=== PATIENT | female | born 1970 | race Caucasian/White ===

== ENCOUNTER → 2016-02-25 | Outpatient (CLI) | payer BC ==
--- NOTE | 2016-02-25 16:08 | MR ---
EXAMINATION TYPE: MR LE non joint RT wo/w con DATE OF EXAM: 02/25/2016 9:26 AM COMPARISON: Right lower extremity targeted ultrasound December 14, 2015 HISTORY: Palpable lump on rt distal thigh, painful, marker placed CONTRAST: Standard multiplanar, multisequence MRI departmental protocol utilizing 16 mL intravenous MultiHance gadolinium contrast. FINDINGS: A vitamin E marker is placed at level of palpable abnormality anteriorly in the right femur midshaft level seen on axial image 25. No suspicious skin thickening is identified at this level. Ordonez bcutaneous fat appears within normal limits. There is no worrisome solid or cystic mass or fluid marcelina ection seen. Visualized right femur is within normal limits. No suspicious cortical destruction or osseous edema i s present. Muscles surrounding right femur are symmetric and felt within normal limits. Within the anterior musc le at this level there is intramuscular T1 signal isointense to fat with T2 signal that is more hyper intense to fat that does not show fat saturation. There is suggestion there is feeding vessel into th is structure on coronal image 7. Lesion is slightly lobulated but fairly well-defined measuring 1 cm transversely on axial image 31 x 1.6 cm in craniocaudal dimension by 0.7 cm anterior posterior dimens ion. 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
== END | disposition home or self-care (01) ==
LOC: RADMRIMAIN 08:08
PROVIDERS: ATTEND Family Medicine
DX: Q27.9 Congenital malformation of peripheral vascular system, unspecified (principal)
CPT/HCPCS: 73720; A9577

== ENCOUNTER → 2018-03-11 | Outpatient (CLI) | payer BC ==
--- NOTE | 2018-03-11 11:18 | CT ---
EXAMINATION TYPE: CT brain wo con DATE OF EXAM: 03/11/2018 COMPARISON: 02/14/2012 HISTORY: Persistant headache CT DLP: 1121 mGycm. Automated Exposure Control for Dose Reduction was Utilized. TECHNIQUE: CT scan of the head is performed without contrast. FINDINGS: There is no acute intracranial hemorrhage, mass effect, or midline shift identified. The ventricles and sulci are within normal limits in size. The globes are intact and the visualized sin uses are clear. Changes of chronic sinusitis are noted. Artifact does limit the exam. IMPRESSION: 1. No acute intracranial hemorrhage, mass effect, or midline shift is seen. If there is concern for a cute ischemia correlate with MRI as clinically warranted. 2. Changes of right chronic sinusitis.
== END | disposition home or self-care (01) ==
LOC: RADCTMAIN 10:45
PROVIDERS: ATTEND Family Medicine
DX: G44.52 New daily persistent headache (NDPH) (principal)
CPT/HCPCS: 70450

== ENCOUNTER 2018-09-16 05:00 | Emergency (ER) | payer BC ==
[2018-09-16 05:35] LABS: Appearance,Urine Clear (Clear); Bilirubin,Urine Negative (Negative); Blood,Urine Negative (Negative); Color,Urine Colorless; Glucose,Urine (UA) Negative (Negative); Ketones,Urine Negative (Negative); Leukocyte Esterase,Urine Negative (Negative); Nitrite,Urine Negative (Negative); Protein,Urine Negative (Negative); Specific Gravity,Urine 1.001 (1.001-1.035); Urobilinogen,Urine <2.0 mg/dL (<2.0)
[2018-09-16 05:36] LABS: Basophils % (A) 1 %; Eosinophils # (A) 0.2 k/uL (0-0.7); Eosinophils % (A) 3 %; HCT 43.9 % (34.0-46.0); Lymphocytes # (A) 1.5 k/uL (1.0-4.8); Lymphocytes % (A) 27 %; MCH 28.5 pg (25.0-35.0); MCHC 31.9 g/dL (31.0-37.0); MCV 89.2 fL (80.0-100.0); Mean Platelet Volume 7.4; Monocytes # (A) 0.2 k/uL (0-1.0); Monocytes % (A) 4 %; Neutrophils # (A) 3.7 k/uL (1.3-7.7); Neutrophils % (A) 65 %; Platelet Count 220 k/uL (150-450); RBC 4.92 m/uL (3.80-5.40); RDW 13.9 % (11.5-15.5); WBC 5.7 k/uL (3.8-10.6)
[2018-09-16 05:46] LABS: ALT 27 U/L (9-52); AST 32 U/L (14-36); African American GFR (CKD) >90 (>60 ml/min/1.73 sqM); Alkaline Phosphatase 69 U/L (38-126); Amylase 71 U/L (30-110); Anion Gap 7 mmol/L; Blood Urea Nitrogen 6 mg/dL (7-17); Calcium 9.2 mg/dL (8.4-10.2); Carbon Dioxide 24 mmol/L (22-30); Chloride 109 mmol/L (98-107); Glucose 96 mg/dL (74-99); Potassium 3.5 mmol/L (3.5-5.1); Sodium 140 mmol/L (137-145); Total Bilirubin 0.5 mg/dL (0.2-1.3); Total Protein 6.6 g/dL (6.3-8.2)
[2018-09-16] MEDS ORDERED: MORPHINE SULFATE 4 MG/ML SYRINGE IVP STA (06:25)
--- NOTE | 2018-09-16 06:26 | XR ---
INDICATION: Abdominal pain COMPARISON: None FINDINGS: 2 upright AP views of the abdomen are provided. There are surgical clips projecting over the region of the gastroesophageal junction. The bowel gas pattern is nonspecific and nonobstructive. There is no evidence of free air. There are pelvic phleboliths. Regional skeleton appears intact. The lung bases are clear. IMPRESSION: Nonspecific, nonobstructive bowel gas pattern.
[2018-09-16] MEDS ORDERED: ONDANSETRON 4 MG/2 ML VIAL IVP STA (06:29)
--- NOTE | 2018-09-16 07:10 | ED ---
Abdominal Pain HPI - General Source: patient, RN notes reviewed, old records reviewed Mode of arrival: ambulatory Limitations: no limitations - History of Present Illness MD Complaint: abdominal pain -: days(s) (3) Location: epigastric, suprapubic Radiation: L flank, R flank, back Migration to: bilateral flank Severity: moderate Severity scale (1-10): 5 Quality: aching Consistency: intermittent Improves With: nothing Worsens With: nothing Associated Symptoms: nausea <Jam Norman - Last Filed: 09/16/18 07:03> <Kevin Starks - Last Filed: 09/16/18 08:14> - General Chief Complaint: Abdominal Pain Stated Complaint: Abd Pain Time Seen by Provider: 09/16/18 06:02 - History of Present Illness Initial Comments: This is a 47-year-old female the ER for evaluation shortness a for evaluation of bowel pain but mainly back pain pain in her back. Patient has history of C- section hysterectomy gastric bypass. Patient is recent travel history or sick contacts no fever cough or congestion. No modifying factors for pain at home. Pain is her back radiating to anterior abdomen. No nausea no vomiting again no fevers no diarrhea no blood in stool patient states her bowel pain 3 days with nausea (Jam Norman) - Related Data Home Medications Medication Instructions Recorded Confirmed Cetirizine HCl [Zyrtec Chewable] 10 mg PO HS 07/01/13 09/16/18 Citalopram Hydrobromide [CeleXA] 40 mg PO HS 09/16/18 09/16/18 Allergies Allergy/AdvReac Type Severity Reaction Status Date / Time scopolamine AdvReac DILATED Verified 09/16/18 07:54 PUPILS sulfamethoxazole AdvReac Nausea & Verified 09/16/18 07:54 [From Bactrim] Vomiting trimethoprim [From Bactrim] AdvReac Nausea & Verified 09/16/18 07:54 Vomiting Review of Systems ROS Other: All systems not noted in ROS Statement are negative. <Jam Norman - Last Filed: 09/16/18 07:03> ROS Other: All systems not noted in ROS Statement are negative. <Kevin Starks - Last Filed: 09/16/18 08:14> ROS Statement: Those systems with pertinent positive or pertinent negative responses have been documented in the HPI. Past Medical History Past Medical History: GERD/Reflux Additional Past Medical History / Comment(s): Tooth abcess History of Any Multi-Drug Resistant Organisms: None Reported Past Surgical History: Section, Hysterectomy Additional Past Surgical History / Comment(s): Oral surgery, gastric bypass Past Anesthesia/Blood Transfusion Reactions: No Reported Reaction Past Psychological History: Depression Smoking Status: Never smoker Past Alcohol Use History: None Reported Past Drug Use History: None Reported - Past Family History Father Family Medical History: Diabetes Mellitus Additional Family Medical History / Comment(s): Father had a history of depression and as a result of suicide Mother Family Medical History: Cancer <Jam Norman - Last Filed: 09/16/18 07:03> General Exam Limitations: no limitations General appearance: alert, in no apparent distress Head exam: Present: atraumatic, normocephalic, normal inspection Eye exam: Present: normal appearance, PERRL, EOMI. Absent: scleral icterus, conjunctival injection, periorbital swelling ENT exam: Present: normal exam, mucous membranes moist Neck exam: Present: normal inspection. Absent: tenderness, meningismus, lymphadenopathy Respiratory exam: Present: normal lung sounds bilaterally. Absent: respiratory distress, wheezes, rales, rhonchi, stridor Cardiovascular Exam: Present: regular rate, normal rhythm, normal heart sounds. Absent: systolic murmur, diastolic murmur, rubs, gallop, clicks GI/Abdominal exam: Present: soft, normal bowel sounds. Absent: distended, tenderness, guarding, rebound, rigid Extremities exam: Present: normal inspection, full ROM, normal capillary refill. Absent: tenderness, pedal edema, joint swelling, calf tenderness Back exam: Present: normal inspection Neurological exam: Present: alert, oriented X3, CN II-XII intact Psychiatric exam: Present: normal affect, normal mood Skin exam: Present: warm, dry, intact, normal color. Absent: rash <Jam Norman - Last Filed: 09/16/18 07:03> Course <Jam Norman - Last Filed: 09/16/18 07:03> Vital Signs 09/16/18 09/16/18 09/16/18 05:07 06:22 07:15 Temperature 98.7 F 98.6 F Pulse Rate 72 75 72 Respiratory 18 18 16 Rate Blood Pressure 126/79 124/85 119/75 O2 Sat by Pulse 99 96 98 Oximetry - Reevaluation(s) Reevaluation #1: 09/16/18 07:06 Medical record reviewed (Jam Norman) Reevaluation #2: 09/16/18 07:06 Patient requiring pain control, pain is improved (Jam Norman) Medical Decision Making - Lab Data Result diagrams: 09/16/18 05:16 09/16/18 05:16 - Radiology Data Radiology results: report reviewed (CT of abdomen and pelvis), image reviewed <Jam Norman - Last Filed: 09/16/18 07:03> - Lab Data Result diagrams: 09/16/18 05:16 09/16/18 05:16 - Radiology Data Radiology results: report reviewed (Computed tomography scan of the abdomen pelvis shows partial gastrectomy change. No bowel obstruction. Probable atelectasis. Moderate hepatic steatosis), image reviewed (KUB shows nonobstructive pattern) <Kevin Starks - Last Filed: 09/16/18 08:14> - Medical Decision Making 47 female the ER for evaluation. Patient has history of abdominal pain. Labwork is normal. Patient is here is controlled (Jam Norman) Case endorsed to me for probable discharge after computed tomography scan. Patient reevaluated and resting comfortably in bed. Abdomen is soft and nontender. Patient and family updated on results and need for follow-up. Patient does not want any further medication at this point. (Kevin Starks) - Lab Data Lab Results 09/16/18 09/16/18 09/16/18 Range/Units 05:16 05:16 05:16 WBC 5.7 (3.8-10.6) k/uL RBC 4.92 (3.80-5.40) m/uL Hgb 14.0 (11.4-16.0) gm/dL Hct 43.9 (34.0-46.0) % MCV 89.2 (80.0-100.0) fL MCH 28.5 (25.0-35.0) pg MCHC 31.9 (31.0-37.0) g/dL RDW 13.9 (11.5-15.5) % Plt Count 220 (150-450) k/uL Neutrophils % 65 % Lymphocytes % 27 % Monocytes % 4 % Eosinophils % 3 % Basophils % 1 % Neutrophils # 3.7 (1.3-7.7) k/uL Lymphocytes # 1.5 (1.0-4.8) k/uL Monocytes # 0.2 (0-1.0) k/uL Eosinophils # 0.2 (0-0.7) k/uL Basophils # 0.0 (0-0.2) k/uL Sodium 140 (137-145) mmol/L Potassium 3.5 (3.5-5.1) mmol/L Chloride 109 H (98-107) mmol/L Carbon Dioxide 24 (22-30) mmol/L Anion Gap 7 mmol/L BUN 6 L (7-17) mg/dL Creatinine 0.61 (0.52-1.04) mg/dL Est GFR (CKD-EPI)AfAm >90 (>60 ml/min/1.73 sqM) Est GFR (CKD-EPI)NonAf >90 (>60 ml/min/1.73 sqM) Glucose 96 (74-99) mg/dL Calcium 9.2 (8.4-10.2) mg/dL Total Bilirubin 0.5 (0.2-1.3) mg/dL AST 32 (14-36) U/L ALT 27 (9-52) U/L Alkaline Phosphatase 69 (38-126) U/L Total Protein 6.6 (6.3-8.2) g/dL Albumin 4.0 (3.5-5.0) g/dL Amylase 71 (30-110) U/L Lipase 86 (23-300) U/L Urine Color Colorless Urine Appearance Clear (Clear) Urine pH 5.0 (5.0-8.0) Ur Specific [place] 1.001 (1.001-1.035) Urine Protein Negative (Negative) Urine Glucose (UA) Negative (Negative) Urine Ketones Negative (Negative) Urine Blood Negative (Negative) Urine Nitrite Negative (Negative) Urine Bilirubin Negative (Negative) Urine Urobilinogen <2.0 (<2.0) mg/dL Ur Leukocyte Esterase Negative (Negative) Disposition Is patient prescribed a controlled substance at d/c from ED?: No <Jam Norman - Last Filed: 09/16/18 07:03> Time of Disposition: 08:13 <Kevin Starks - Last Filed: 09/16/18 08:14> Clinical Impression: Abdominal pain Disposition: HOME SELF-CARE Condition: Good Instructions (If sedation given, give patient instructions): Abdominal Pain (ED) Additional Instructions: Please follow-up to primary care physician and surgeon in the next couple days for recheck. Return for increased pain, vomiting, unable to have bowel movement, fevers, worsening symptoms or other concerns. Referrals: Jam Weber MD [Primary Care Provider] - 1-2 days
[2018-09-16 07:18] VITALS: BP 119/75; RESP 16
--- NOTE | 2018-09-16 07:38 | CT ---
EXAMINATION TYPE: CT abdomen pelvis w con DATE OF EXAM: 09/16/2018 HISTORY: Abdominal pain CT DLP: 1457.9mGycm Automated Exposure Control for Dose Reduction was Utilized. CONTRAST: CT scan of the abdomen and pelvis is performed with IV Contrast, patient injected with 100 mL of Isov ue 300. COMPARISON: None. FINDINGS: LUNG BASES: There is curvilinear left basilar airspace disease. LIVER/GB: Hepatic parenchyma is diffusely hypoattenuated in comparison to that of the spleen, most co mmonly seen in hepatic steatosis. This finding limits evaluation for hepatic masses. No gross evidenc e of hepatic mass is seen. No intrahepatic biliary ductal dilatation. No cholelithiasis. PANCREAS: No significant abnormality is seen. SPLEEN: No significant abnormality is seen. ADRENALS: No significant abnormality is seen. KIDNEYS: To small to accurately characterize right lower pole hypoattenuated renal lesion. Otherwise the kidneys enhance and excrete symmetrically. No hydronephrosis. Incidentally noted circumaortic lef t renal vein. BOWEL: Partial gastrectomy has been performed. There are a few scattered colonic diverticula without pericolonic fat stranding. No dilated large or small bowel. The SMV does not cross to the left of the SMA, no reversal. UTERUS/ADNEXA: Uterus is surgically absent. LYMPH NODES: No greater than 1cm abdominal or pelvic lymph nodes are appreciated. OSSEOUS STRUCTURES: Mild multilevel degenerative changes of the spine. OTHER: There is a very small fat filled umbilical hernia. IMPRESSION: 1. Partial gastrectomy change. No bowel obstruction. 2. Moderate hepatic steatosis. 3. Left basilar airspace disease that given its curvilinear morphology likely represents atelectasis although pneumonia is possible in the proper clinical setting.
[2018-09-16 08:34] VITALS: PULSE 66; TEMP 98
== END 2018-09-16 08:32 | disposition home or self-care (01) ==
LOC: EC 05:00
DX: R10.13 Epigastric pain (principal); F32.9 Major depressive disorder, single episode, unspecified; Z79.899 Other long term (current) drug therapy; Z88.2 Allergy status to sulfonamides; Z88.8 Allergy status to other drugs, medicaments and biological substances; Z90.710 Acquired absence of both cervix and uterus; Z98.84 Bariatric surgery status
CPT/HCPCS: 36415; 74018; 74177; 80053; 81003; 82150; 83690; 85025; 96374; 96375; 99285

== ENCOUNTER → 2020-07-14 | Outpatient (CLI) | payer BC ==
--- NOTE | 2020-07-15 07:54 | MM ---
Reason for exam: screening (asymptomatic). Last mammogram was performed 3 years and 7 months ago. History: Took hormonal contraceptives for 8 years. Physical Findings: A clinical breast exam by your physician is recommended on an annual basis and results should be correlated with mammographic findings. MG Screening Mammo w CAD Bilateral CC and MLO view(s) were taken. Prior study comparison: December 14, 2016, bilateral MG screening mammo w CAD. November 10, 2014, left breast MG diagnostic mammo LT w CAD. There are scattered fibroglandular densities. Right nodule upper outer quadrant middle depth. Left breast unremarkable. This finding is changed when compared with previous exams. ASSESSMENT: Incomplete: need additional imaging evaluation, BI-RAD 0 RECOMMENDATION: Special view mammogram of the right breast. If lesion persists on supplemental views, image directed ultrasound is recommended. [facility] will attempt to contact patient to return for supplemental views and ultrasound if indicated.
== END | disposition home or self-care (01) ==
LOC: RADMAMWWP 08:16
PROVIDERS: ATTEND Family Medicine
DX: Z12.31 Encounter for screening mammogram for malignant neoplasm of breast (principal)
CPT/HCPCS: 77067

== ENCOUNTER → 2020-07-28 | Outpatient (CLI) | payer BC ==
--- NOTE | 2020-08-03 11:40 | MM ---
Reason for exam: additional evaluation requested from abnormal screening. Last mammogram was performed less than 1 month ago. History: Took hormonal contraceptives for 8 years. Physical Findings: Nurse did not find any significant physical abnormalities on exam. MG Work Up Mamm w CAD RT Spot compression CC, spot compression MLO, and ML view(s) were taken of the right breast. Prior study comparison: July 14, 2020, bilateral MG screening mammo w CAD. December 14, 2016, bilateral MG screening mammo w CAD. There are scattered fibroglandular densities. Finding: There is a 1 mm equal density (isodense), spiculated round mass located 8 cm from the nipple in the 10 o'clock upper outer quadrant of the right breast. These results were verbally communicated with the patient and result sheet given to the patient on 07/28/20. ASSESSMENT: Incomplete: need additional imaging evaluation, BI-RAD 0 RECOMMENDATION: Ultrasound of the right breast.
--- NOTE | 2020-08-03 11:42 | USB ---
Reason for exam: additional evaluation requested from abnormal screening. History: Took hormonal contraceptives for 8 years. US Breast Workup Limited RT Right limited breast ultrasound including focal area of concern, retroareolar and axilla demonstrates a 0.8 x 0.5 x 1.0cm mixed lesion at 11 o'clock, may be complex cyst. These results were verbally communicated with the patient and result sheet given to the patient on 07/28/20. ASSESSMENT: Probably benign, BI-RAD 3 RECOMMENDATION: Ultrasound of the right breast in 3 months. Follow-up diagnostic mammogram of the right breast in 6 months.
== END | disposition home or self-care (01) ==
LOC: RADMAMWWP 13:32
PROVIDERS: ATTEND Family Medicine
DX: R92.8 Other abnormal and inconclusive findings on diagnostic imaging of breast (principal); N63.11 Unspecified lump in the right breast, upper outer quadrant
CPT/HCPCS: 77065

== ENCOUNTER → 2020-12-16 | Outpatient (CLI) | payer BC ==
--- NOTE | 2020-12-20 08:57 | USB ---
Reason for exam: follow-up at short interval from prior study. History: Took hormonal contraceptives for 8 years. Physical Findings: Nurse did not find any significant physical abnormalities on exam. US Breast Limited RT Right limited breast ultrasound including focal area of concern, retroareolar and axilla demonstrates a 0.8 x 0.8 x 1.0cm irregular, solid lesion at 10 o'clock. These results were verbally communicated with the patient and result sheet given to the patient on 12/16/20. ASSESSMENT: Suspicious, BI-RAD 4 RECOMMENDATION: Ultrasound core biopsy of the right breast. Called Dr. Weber's office with mammographic findings and has scheduled an appointment for the patient for 01/27/21 at 9:[address] Coe. Biopsy scheduled for 01/27/21 at 10:30. PRELIMINARY REPORT CALLED AND FAXED TO DR. COE ON 12/20/20.
== END | disposition home or self-care (01) ==
LOC: RADUSWWP 07:37
PROVIDERS: ATTEND Family Medicine
DX: R92.8 Other abnormal and inconclusive findings on diagnostic imaging of breast (principal)

== ENCOUNTER → 2021-01-27 | Outpatient (CLI) | payer OTHER ==
[2021-01-27 09:08] VITALS: BP 114/72; PULSE 66; RESP 18; TEMP 98.1
--- NOTE | 2021-01-27 09:54 | P.GSHP ---
History of Present Illness H&P Date: 01/27/21 Chief Complaint: abnormal right breast ultrasound Pinky is a 50 year old white female seen in consultation for Dr. Weber regarding an ultrasound abnormality in the right breast. She underwent a bilateral mammogram on 07-14-20 after which additional views of the right breast were recommended. These were repeated and July and an ultrasound was recommended, at that time a 1 mm spiculated round mass was noted in the upper outer quadrant of the right breast. An ultrasound was then performed on [id number]. This revealed a 0.8 x 1 cm irregular solid lesion at 10:00, ultrasound core biopsy was recommended. Patient does not feel any lumps masses or nodules of concern in either breast. She is not complaining of any nipple discharge or skin changes. She has not had any recent trauma or infection in the breast. She has not had any prior breast biopsies. Caffeine: One cup per day Nicotine: Negative; former smoker 1 year at 22 Chocolate: Negative Family history: mother: endometrial cancer maternal uncles 2: colon cancer Hormonal History: menarche: 15 , M3; breast fed: no, age at first : 26 hysterectomy at 38, did not take ovaries done for pain BCP: 8 years stopped at 25 hormones: none Surgical History: 2 laprosciscopies for ectopic pregnancies Hysterectomy gastric bypass ( lost 100 pounds, 5 years ago) ovarian cyst removed Medical History: anxiety GERD Social History: HEENT: Negative Alcohol: Negative Drugs: Negative - Constitutional Constitutional: Denies chills, Denies fever - EENT Eyes: denies blurred vision, denies pain Ears: deny: decreased hearing, tinnitus Ears, nose, mouth and throat: Denies headache, Denies sore throat - Breasts Breasts: bilateral: as per HPI - Cardiovascular Cardiovascular: Denies chest pain, Denies shortness of breath - Respiratory Respiratory: Denies cough, Denies 7 - Gastrointestinal Gastrointestinal: Denies abdominal pain, Denies diarrhea, Denies nausea, Denies vomiting - Genitourinary (Female) Genitourinary: Reports kidney stones, Denies dysuria, Denies hematuria - Menstruation Menstruation: Reports post hysterectomy - Musculoskeletal Musculoskeletal: Denies myalgias - Integumentary Integumentary: Denies pruritus, Denies rash - Neurological Neurological: Denies numbness, Denies weakness - Psychiatric Psychiatric: Reports anxiety - Endocrine Endocrine: Denies fatigue, Denies weight change - Hematologic/Lymphatic Comment: one - Allergic/Immunologic Allergic/Immunologic: Reports as per HPI, Reports seasonal allergies Past Medical History Past Medical History: GERD/Reflux Additional Past Medical History / Comment(s): Tooth abcess History of Any Multi-Drug Resistant Organisms: None Reported Past Surgical History: Section, Hysterectomy Additional Past Surgical History / Comment(s): Oral surgery, gastric bypass Past Anesthesia/Blood Transfusion Reactions: No Reported Reaction Past Psychological History: Depression Additional Psychological History / Comment(s): She relates that she is and the family home with her her daughter and son-in-law. She is a tobacco smoker. She works for [employer]. She has no "international travels anytime. No local travels as of late. She has a pet dog and 2 pet cats in the home. No change in the home environment. She does relate a history of any recreational drug use Smoking Status: Former smoker Past Alcohol Use History: None Reported Past Drug Use History: None Reported - Past Family History Father Family Medical History: Diabetes Mellitus Additional Family Medical History / Comment(s): Father had a history of depression and as a result of suicide Mother Family Medical History: Cancer Medications and Allergies Home Medications Medication Instructions Recorded Confirmed Type Citalopram Hydrobromide [CeleXA] 60 mg PO HS 09/16/18 01/27/21 History Cetirizine HCl [Zyrtec] 10 mg PO DAILY 01/27/21 01/27/21 History buPROPion XL [Wellbutrin XL] 150 mg PO DAILY 01/27/21 01/27/21 History Allergies Allergy/AdvReac Type Severity Reaction Status Date / Time scopolamine AdvReac DILATED Verified 01/27/21 09:05 PUPILS sulfamethoxazole AdvReac Nausea & Verified 01/27/21 09:05 [From Bactrim] Vomiting trimethoprim [From Bactrim] AdvReac Nausea & Verified 01/27/21 09:05 Vomiting Surgical - Exam Vital Signs Temp Pulse Resp BP Pulse Ox 98.1 F 66 18 114/72 98 01/27/21 09:06 01/27/21 09:06 01/27/21 09:06 01/27/21 09:06 01/27/21 09:06 BMI 37.6 - General no distress - Eyes normal ocular movement - ENT normal mucosa - Neck trachea midline - Respiratory normal respiratory effort - Cardiovascular Rhythm: regular Heart Sounds: normal: S1, S2 - Abdomen Abdomen: soft - Integumentary normal turgor - Neurologic no disoriented, no combative - Musculoskeletal normal gait - Psychiatric oriented to time, oriented to person, oriented to place, speech is normal, memory intact Breast Exam: BRA: 43DD Section: Right breast slightly smaller than left breast, grade 2 ptosis bilaterally Palpation: Right breast: Multiple positional exam fibrocystic changes no dominant masses or nodules of concern particular tension at 10:00 no discrete lesions identified Right axilla: No adenopathy of concern Left breast: Multi-positional exam fibrocystic changes no dominant masses or nodules of concern Left axilla: No adenopathy of concern Results Mammogram and ultrasound results reviewed Assessment and Plan Assessment: Impression: 1. 50-year-old white female ultrasound abnormality right breast 1 mm equal density spiculated mass 8 cm from the nipple for which ultrasound-guided core biopsy is recommended Plan: 1. Ultrasound core biopsy right breast Risk and benefits discussed with the patient. She understands and wishes to proceed. She will follow up after core biopsy for review of the pathology results Cc: Dr. Weber
== END | disposition home or self-care (01) ==
LOC: WWCWWP 08:52
PROVIDERS: ATTEND Surgery
DX: Z53.9 Procedure and treatment not carried out, unspecified reason (principal)

== ENCOUNTER → 2021-01-27 | Day surgery (SDC) | payer BC, OTHER ==
[2021-01-27 10:04] VITALS: RESP 16
[2021-01-27 11:16] VITALS: BP 102/70; PULSE 62; TEMP 97.9
--- NOTE | 2021-01-27 17:07 | USB ---
EXAMINATION TYPE: US biopsy breast VAD RT DATE OF EXAM: 01/27/2021 CLINICAL HISTORY: R92.8 ABNORMAL MAMMOGRAM. TECHNIQUE: Ultrasound guided vaccuum assisted core biopsy of right breast. COMPARISON: NONE FINDINGS: The ultrasound guided core biopsy procedure was explained to the patient. The risks, benef its, alternatives were discussed. An informed consent was then obtained. Timeout was performed. The patient was placed in supine positioning for imaging and for the procedure. The overlying skin w as prepped with betadine and sterilely draped in usual sterile fashion. Lidocaine 1% was used as ane sthetic into the skin and deeper breast tissue up to area of concern in the breast. A small skin liberty k was made with surgical scalpel. Under ultrasound guidance, a 12-gauge vacuum assisted biopsy device was used to obtain 3 core samples . A biopsy clip was left in lesion. Ribbon clip was placed Good hemostasis was obtained with direct pressure. Discharge instructions were discussed with the bhavya lu. The patient will follow up with the referring physician for results. Postprocedure mammogram: The patient was transferred to mammography for physician ordered post proced ure mammogram for clip placement verification. The clip is in the expected region of the biopsy. The patient tolerated the procedure well without any immediate complication. The patient was dischar ged to home in stable condition. IMPRESSION: 1. Successful ultrasound guided biopsy right breast. Recommendations: 1. Recommendations are pending pathology results.
== END ==
LOC: RADUSWWP 08:54
PROVIDERS: ATTEND Surgery
DX: R92.8 Other abnormal and inconclusive findings on diagnostic imaging of breast (principal)
CPT/HCPCS: 19083; 88305; 77065; A4648; J2001

== ENCOUNTER → 2021-02-02 | Outpatient (CLI) | payer OTHER ==
--- NOTE | 2021-02-02 12:54 | P.PN ---
Progress Note - Text Progress Note Date: 02/02/21 The patient underwent an ultrasound core biopsy of the right breast on [id number]. The lesion was described as a 0.8 x 1 cm irregular solid lesion at 10:00. Pathology was benign breast tissue with focal fibrosis. The patient did not have any complaints related to the procedure. There was concern however that the area was concordant and this was reviewed with Dr. Mcmahon from radiology. He felt that this was most likely concordant but recommended a 3 month repeat right breast mammogram and ultrasound. The patient is aware and this will be scheduled. She will follow up at that time. She did not stay for her office appointment and this was via a telephone conversation. CC: Dr. Weber
== END | disposition home or self-care (01) ==
LOC: WWCWWP 09:04
PROVIDERS: ATTEND Surgery
DX: Z53.9 Procedure and treatment not carried out, unspecified reason (principal)

== ENCOUNTER → 2021-08-01 | Outpatient (CLI) | payer OTHER ==
--- NOTE | 2021-08-01 13:48 | MM ---
Reason for Exam: Hx of benign breast biopsy. Last mammogram was performed 1 year(s) and 1 month(s) ago. Patient History: Menarche at age 13. First Full-Term at age 26. Hysterectomy at age 36. Hormonal Contraceptives for 8 years until age 24. 01/27/2021, Benign Core Biopsy on the right side. Risk Values: Lorrie 5 year model risk: 1.3%. NCI Lifetime model risk: 11.8%. Prior Study Comparison: 07/14/2020 Bilateral Screening Mammogram, [facility]. 07/28/2020 Right Diagnostic Mammogram, [facility]. 01/27/2021 Right Diagnostic Mammogram, [facility]. Tissue Density: There are scattered fibroglandular densities. Findings: Analyzed By CAD. Microclip posterior upper-outer quadrant right breast from prior biopsy. The previous 11-12 o'clock centrally located nodule for which evaluation was originally being performed is no longer identified. There is a needle circumscribed 5 mm nodule laterally in the right breast at a middle depth. In retrospect, it appears to have been subtly present 6 months ago as well. A benign etiology is favored. Six-month follow-up recommended to reassess. No significant change within the left breast. Overall Assessment: Probably benign, BI-RAD 3 Management: Diagnostic Mammogram of the right breast in 6 months. 1. Six-month follow-up diagnostic right breast mammogram for suspected small 5 mm lateral cyst. 2. Patient should continue monthly self breast exams. 3. This exam should not preclude additional follow-up of suspicious palpable abnormalities. Results were given to the patient verbally at the time of exam. Electronically signed and approved by: Hawa Mcmahon M.D. Radiologist
== END | disposition home or self-care (01) ==
LOC: RADMAMWWP 12:49
PROVIDERS: ATTEND Surgery
DX: R92.8 Other abnormal and inconclusive findings on diagnostic imaging of breast (principal)
CPT/HCPCS: 77066

== ENCOUNTER 2022-07-05 02:28 | Emergency (ER) | payer OTHER ==
[2022-07-05 02:33] VITALS: TEMP 97.9
[2022-07-05] MEDS ORDERED: ONDANSETRON 4 MG/2 ML VIAL IVP STA (02:54)
[2022-07-05] MEDS ORDERED: KETOROLAC 15 MG/ML 1 ML VIAL IVP STA (02:55)
[2022-07-05] MEDS ORDERED: ORPHENADRINE 30 MG/ML 2 ML VIAL IVP STA (02:55)
[2022-07-05 03:39] LABS: Basophils % (A) 0 %; Eosinophils # (A) 0.1 k/uL (0-0.7); Eosinophils % (A) 2 %; HCT 35.8 % (34.0-46.0); HGB 11.6 gm/dL (11.4-16.0); Hypochromasia Slight; Lymphocytes # (A) 2.2 k/uL (1.0-4.8); Lymphocytes % (A) 37 %; MCH 26.6 pg (25.0-35.0); MCHC 32.5 g/dL (31.0-37.0); MCV 81.7 fL (80.0-100.0); Mean Platelet Volume 7.7; Monocytes # (A) 0.3 k/uL (0-1.0); Monocytes % (A) 5 %; Neutrophils # (A) 3.3 k/uL (1.3-7.7); Neutrophils % (A) 54 %; Platelet Count 263 k/uL (150-450); RBC 4.38 m/uL (3.80-5.40); RDW 15.4 % (11.5-15.5)
[2022-07-05 03:42] LABS: Appearance,Urine Clear (Clear); Bilirubin,Urine Negative (Negative); Blood,Urine Negative (Negative); Color,Urine Yellow; Glucose,Urine (UA) Negative (Negative); Hyaline Casts,Urine 7 /lpf (0-2); Ketones,Urine Negative (Negative); Leukocyte Esterase,Urine Trace (Negative); Mucus,Urine Many /hpf; Nitrite,Urine Negative (Negative); PH, Urine 5.5 (5.0-8.0); Protein,Urine Negative (Negative); RBC,Urine 1 /hpf (0-5); Specific Gravity,Urine 1.021 (1.001-1.035); Squamous Epithelial Cell,Urine <1 /hpf (0-4); WBC,Urine 2 /hpf (0-5)
[2022-07-05 03:54] LABS: ALT 25 U/L (4-34); AST 31 U/L (14-36); African American GFR (CKD) >90 (>60 ml/min/1.73 sqM); Albumin 3.7 g/dL (3.5-5.0); Alkaline Phosphatase 87 U/L (38-126); Anion Gap 10 mmol/L; Blood Urea Nitrogen 8 mg/dL (7-17); Calcium 8.5 mg/dL (8.4-10.2); Carbon Dioxide 25 mmol/L (22-30); Chloride 103 mmol/L (98-107); Glucose 89 mg/dL (74-99); Non-African American GFR(CKD) >90 (>60 ml/min/1.73 sqM); Potassium 4.1 mmol/L (3.5-5.1); Sodium 138 mmol/L (137-145); Total Bilirubin 0.2 mg/dL (0.2-1.3); Total Protein 6.5 g/dL (6.3-8.2)
--- NOTE | 2022-07-05 04:22 | ED ---
Back Pain HPI - General Source: patient Limitations: no limitations <Annalisa Blancas - Last Filed: 07/05/22 04:27> <Isaak Anna - Last Filed: 07/05/22 05:36> - General Chief Complaint: Back Pain/Injury Stated Complaint: Lower Left Back Pain Time Seen by Provider: 07/05/22 02:50 - History of Present Illness Initial Comments: Patient is a 51-year-old female presents to the emergency department for back pain. This started yesterday and has been worsening. Patient describes it as an aching with intermittent sharp episodes. There is no radiation. Pain is not influenced by movement. She denies injury and recent fall. No numbness or tingling of the legs, groin, buttock region. No loss of bowel or bladder function. Patient feels nauseous no vomiting. No fever or chills. Patient does have history of kidney stones she cannot remember what her prior one folic. Denies burning with urination, blood in the urine, increased urinary frequency/urgency. Denies chest pain shortness of breath. (Annalisa Blancas) - Related Data Home Medications Medication Instructions Recorded Confirmed Citalopram Hydrobromide [CeleXA] 60 mg PO HS 09/16/18 01/27/21 Cetirizine HCl [Zyrtec] 10 mg PO DAILY 01/27/21 01/27/21 buPROPion XL [Wellbutrin XL] 150 mg PO DAILY 01/27/21 01/27/21 Previous Rx's Medication Instructions Recorded Lidocaine 5% Patch [Lidoderm] 1 patch TOPICAL DAILY #15 patch 07/05/22 Naproxen [EC-Naproxen] 500 mg PO BID #30 tab 07/05/22 methocarbamoL [Robaxin-750] 750 mg PO TID #30 tab 07/05/22 Allergies Allergy/AdvReac Type Severity Reaction Status Date / Time scopolamine AdvReac DILATED Verified 07/05/22 02:29 PUPILS sulfamethoxazole AdvReac Nausea & Verified 07/05/22 02:29 [From Bactrim] Vomiting trimethoprim [From Bactrim] AdvReac Nausea & Verified 07/05/22 02:29 Vomiting Review of Systems ROS Other: All systems not noted in ROS Statement are negative. <Annalisa Blancas - Last Filed: 07/05/22 04:27> ROS Other: All systems not noted in ROS Statement are negative. <ShoshanaIsaak - Last Filed: 07/05/22 05:36> ROS Statement: Those systems with pertinent positive or pertinent negative responses have been documented in the HPI. Past Medical History Past Medical History: GERD/Reflux Additional Past Medical History / Comment(s): Tooth abcess History of Any Multi-Drug Resistant Organisms: C-DIFF Date of last positivie culture/infection: 2012 MDRO Source:: stool Past Surgical History: Bariatric Surgery, Section, Hysterectomy Additional Past Surgical History / Comment(s): Oral surgery, gastric bypass Past Anesthesia/Blood Transfusion Reactions: No Reported Reaction Past Psychological History: Depression Smoking Status: Never smoker Past Alcohol Use History: None Reported Past Drug Use History: None Reported - Past Family History Father Family Medical History: Diabetes Mellitus Additional Family Medical History / Comment(s): Father had a history of depression and as a result of suicide Mother Family Medical History: Cancer Additional Family Medical History / Comment(s): endometrial <Annalisa Blancas - Last Filed: 07/05/22 04:27> General Exam Limitations: no limitations General appearance: alert, in no apparent distress Head exam: Present: atraumatic, normocephalic, normal inspection Respiratory exam: Present: normal lung sounds bilaterally. Absent: respiratory distress, wheezes, rales, rhonchi, stridor Cardiovascular Exam: Present: regular rate, normal rhythm, normal heart sounds. Absent: systolic murmur, diastolic murmur, rubs, gallop, clicks GI/Abdominal exam: Present: soft, normal bowel sounds. Absent: distended, tenderness, guarding, rebound, rigid Back exam: Present: normal inspection, full ROM, CVA tenderness (L), paraspinal tenderness (left lumbar) Neurological exam: Present: alert, oriented X3, CN II-XII intact Expanded Sensory exam: Upper Extremity Light Touch: Normal, Lower Extremity Light Touch: Normal Motor strength exam: RUE: 5, LUE: 5, RLE: 5, LLE: 5 Psychiatric exam: Present: normal affect, normal mood Skin exam: Present: warm, dry, intact, normal color. Absent: rash <Annalisa Blancas - Last Filed: 07/05/22 04:27> Course Vital Signs 07/05/22 02:29 Temperature 97.9 F Pulse Rate 66 Respiratory 17 Rate Blood Pressure 122/70 O2 Sat by Pulse 97 Oximetry Medical Decision Making - Lab Data Result diagrams: 07/05/22 02:54 07/05/22 03:59 <Annalisa Blancas - Last Filed: 07/05/22 04:27> - Lab Data Result diagrams: 07/05/22 02:54 07/05/22 03:59 <Isaak Anna - Last Filed: 07/05/22 05:36> - Medical Decision Making Was pt. sent in by a medical professional or institution (, PA, OFFICE TECHNICIAN, urgent care, hospital, or [facility]...) When possible be specific @ -[No] Did you speak to anyone other than the patient for history (EMS, parent, family, police, friend...)? What history was obtained from this source @ -[No] Did you review nursing and triage notes (agree or disagree)? Why? @ -[I reviewed and agree with nursing and triage notes] Were old charts reviewed (outside hosp., previous admission, EMS record, old EKG, old radiological studies, urgent care reports/EKG's, [facility] records)? Report findings @ -[No old charts were reviewed] Differential Diagnosis (chest pain, altered mental status, abdominal pain women, abdominal pain men, vaginal bleeding, weakness, fever, dyspnea, syncope, headache, dizziness, GI bleed, back pain, seizure, CVA, palpatations, mental health)? @ -Differential Back Pain: Strain, zoster, cauda equina syndrome, epidural abscess, vertebral osteomyelitis, discitis, fracture, subluxation, disc herniation, DJD, spinal stenosis, dissection, AAA, pancreatitis, peptic ulcer disease, pyelonephritis, kidney stone, this is not meant to be an all-inclusive list. EKG interpreted by me (3pts min.). @ -[As above] X-rays interpreted by me (1pt min.). @ -[None done] CT interpreted by me (1pt min.). @ -[None done] U/S interpreted by me (1pt. min.). @ -[None done] What testing was considered but not performed or refused? (CT, X-rays, U/S, labs)? Why? @ -[None] What meds were considered but not given or refused? Why? @ -[None] Did you discuss the management of the patient with other professionals (professionals i.e. , PA, OFFICE TECHNICIAN, lab, RT, psych nurse, psychiatric social worker, trial lawyer, teacher, medical officer, block and case maker)? Give summary @ -[No] Was smoking cessation discussed for >3mins.? @ -[No] Was critical care preformed (if so, how long)? @ -[No] Were there social determinants of health that impacted care today? How? (Homelessness, low income, unemployed, alcoholism, drug addiction, transportation, low edu. Level, literacy, decrease access to med. care, correction, rehab)? @ -[No] Was there de-escalation of care discussed even if they declined (Discuss DNR or withdrawal of care, Hospice)? DNR status @ -[No] What co-morbidities impacted this encounter? (DM, HTN, Smoking, COPD, CAD, Cancer, CVA, ARF, Chemo, Hep., AIDS, mental health diagnosis, sleep apnea, morbid obesity)? @ -[None] Was patient admitted / discharged? Hospital course, mention meds given and route, prescriptions, significant lab abnormalities, going to OR and other pertinent info. @ -Patient presenting with back pain. No red flag symptoms. No neurological deficit. No midline tenderness. Patient has tenderness in the left lumbar paravertebral region. Pain is reproducible with palpation but not movement. There is mild left CVA tenderness. With history of kidney stone laboratory studies and imaging were obtained.There is no leukocytosis. Kidney function is normal. Urinalysis reveals trace leukocyte esterase without evidence of infection or blood. Patient care given to Dr. Anna at 4:30 Undiagnosed new problem with uncertain prognosis? @ -[No] Drug Therapy requiring intensive monitoring for toxicity (Heparin, Nitro, Insulin, Cardizem)? @ -[No] Were any procedures done? @ -[No] Diagnosis/symptom? @ -Back pain Acute, or Chronic, or Acute on Chronic? @ -Acute Uncomplicated (without systemic symptoms) or Complicated (systemic symptoms)? @ -Uncomplicated Side effects of treatment? @ -[No] Exacerbation, Progression, or Severe Exacerbation? @ -[No] Poses a threat to life or bodily function? How? (Chest pain, USA, NC, pneumonia, PE, COPD, DKA, ARF, appy, cholecystitis, CVA, Diverticulitis, Homicidal, Suicidal, threat to staff... and all critical care pts) @ -[No] Dr. Anna is my attending (Annalisa Blancas) The patient was signed out to me from the PAAnnalisa. The patient was sent out completion of the CT abdomen and pelvis. CT abdomen and pelvis showed no kidney stones or hydronephrosis. There was some mild distention of the gallbladder. There was increased colonic stool burden however there was no other acute findings noted that could explain her symptoms. On reevaluation, the patient had continued but slightly lessened pain on the left lower back. The patient had specific tenderness to palpation over the left lumbar lateral muscles. The patient denied any trauma to the area and stated that it was a spasming that started tonight that woke her up out of sleep. The patient was given Toradol, Norflex and Zofran and stated that it only had minimal improvement. Due to the patient's negative computed tomography scan and the reproducibility of pain on physical exam, the patient was deemed safe for discharge. The patient did not require any ultrasound of the right upper quadr ant as she did not have any pain on palpation. All laboratory workup was negative. The patient had a prescription for Robaxin, naproxen and lidocaine patches ordered. The patient also had a lidocaine patch described in the emergency department. The patient was advised to follow-up with her primary care physician for further workup and evaluation and to report back to the emergency department if they became acutely worse. The patient was agreeable to this and all of her questions were answered. The patient was discharged home in stable condition. (Isaak Anna) - Lab Data Lab Results 07/05/22 07/05/22 07/05/22 Range/Units 02:54 02:54 03:59 WBC 6.0 (3.8-10.6) k/uL RBC 4.38 (3.80-5.40) m/uL Hgb 11.6 (11.4-16.0) gm/dL Hct 35.8 (34.0-46.0) % MCV 81.7 (80.0-100.0) fL MCH 26.6 (25.0-35.0) pg MCHC 32.5 (31.0-37.0) g/dL RDW 15.4 (11.5-15.5) % Plt Count 263 (150-450) k/uL MPV 7.7 Neutrophils % 54 % Lymphocytes % 37 % Monocytes % 5 % Eosinophils % 2 % Basophils % 0 % Neutrophils # 3.3 (1.3-7.7) k/uL Lymphocytes # 2.2 (1.0-4.8) k/uL Monocytes # 0.3 (0-1.0) k/uL Eosinophils # 0.1 (0-0.7) k/uL Basophils # 0.0 (0-0.2) k/uL Hypochromasia Slight Sodium 138 (137-145) mmol/L Potassium 4.1 (3.5-5.1) mmol/L Chloride 103 (98-107) mmol/L Carbon Dioxide 25 (22-30) mmol/L Anion Gap 10 mmol/L BUN 8 (7-17) mg/dL Creatinine 0.67 (0.52-1.04) mg/dL Est GFR (CKD-EPI)AfAm >90 (>60 ml/min/1.73 sqM) Est GFR (CKD-EPI)NonAf >90 (>60 ml/min/1.73 sqM) Glucose 89 (74-99) mg/dL Calcium 8.5 (8.4-10.2) mg/dL Total Bilirubin 0.2 (0.2-1.3) mg/dL AST 31 (14-36) U/L ALT 25 (4-34) U/L Alkaline Phosphatase 87 (38-126) U/L Total Protein 6.5 (6.3-8.2) g/dL Albumin 3.7 (3.5-5.0) g/dL Urine Color Yellow Urine Appearance Clear (Clear) Urine pH 5.5 (5.0-8.0) Ur Specific [place] 1.021 (1.001-1.035) Urine Protein Negative (Negative) Urine Glucose (UA) Negative (Negative) Urine Ketones Negative (Negative) Urine Blood Negative (Negative) Urine Nitrite Negative (Negative) Urine Bilirubin Negative (Negative) Urine Urobilinogen 2.0 (<2.0) mg/dL Ur Leukocyte Esterase Trace H (Negative) Urine RBC 1 (0-5) /hpf Urine WBC 2 (0-5) /hpf Ur Squamous Epith Cells <1 (0-4) /hpf Hyaline Casts 7 H (0-2) /lpf Urine Mucus Many H (None) /hpf Disposition Is patient prescribed a controlled substance at d/c from ED?: No <Matthew Blancasna - Last Filed: 07/05/22 04:27> Is patient prescribed a controlled substance at d/c from ED?: No Time of Disposition: 05:30 <Isaak Anna - Last Filed: 07/05/22 05:36> Clinical Impression: Back pain, Muscle strain Disposition: HOME SELF-CARE Condition: Good Instructions (If sedation given, give patient instructions): Acute Low Back Pain (ED) Additional Instructions: Take medication as directed. Please follow-up with your primary care provider in 1-2 days. Return to the emergency department if you experience new, concerning, or worsening symptoms. Prescriptions: Naproxen [EC-Naproxen] 500 mg PO BID #30 tab Lidocaine 5% Patch [Lidoderm] 1 patch TOPICAL DAILY #15 patch methocarbamoL [Robaxin-750] 750 mg PO TID #30 tab Referrals: Jam Weber MD [Primary Care Provider] - 1-2 days
--- NOTE | 2022-07-05 04:49 | CT ---
EXAM: CT Abdomen and Pelvis Without Intravenous Contrast CLINICAL HISTORY: left flank pain TECHNIQUE: Axial computed tomography images of the abdomen and pelvis without intravenous contrast. CTDI is 20.3 mGy and DLP is 1246.4 mGy-cm. This CT exam was performed using one or more of the following dose reduction techniques: automated exposure control, adjustment of the mA and/or kV according to patient size, and/or use of iterative reconstruction technique. COMPARISON: No relevant prior studies available. FINDINGS: Lung bases: Unremarkable. No mass. No consolidation. Mediastinum: Tiny hiatal hernia. ABDOMEN: Liver: Unremarkable. Gallbladder and bile ducts: Distended gallbladder. No calcified stones. No ductal dilation. Pancreas: Unremarkable. No ductal dilation. Spleen: Unremarkable. No splenomegaly. Adrenals: Unremarkable. No mass. Kidneys and ureters: Unremarkable. No renal stones. No hydronephrosis. Stomach and bowel: Increased colonic stool burden. Status post gastric bypass. Mild colonic diverticulosis. No obstruction. No mucosal thickening. PELVIS: Appendix: No findings to suggest acute appendicitis. Bladder: Underdistention and/or wall thickening of the urinary bladder. No stones. Reproductive: Status post hysterectomy. ABDOMEN and PELVIS: Intraperitoneal space: Unremarkable. No free air. No significant fluid collection. Bones/joints: Mild bilateral sacroiliitis. No acute fracture. No dislocation. Soft tissues: Unremarkable. Vasculature: Unremarkable. No abdominal aortic aneurysm. Lymph nodes: No significant adenopathy, although evaluation is limited without the use of IV contrast material. IMPRESSION: 1. No renal stones. No hydronephrosis. 2. Underdistention and/or wall thickening of the urinary bladder. Correlate with urinalysis to evaluate for cystitis. 3. Distended gallbladder. Right upper quadrant ultrasound is recommended for further evaluation, if clinically indicated. 4. Status post hysterectomy. 5. Tiny hiatal hernia. 6. Increased colonic stool burden. Correlate clinically for constipation. 7. Status post gastric bypass. 8. Mild colonic diverticulosis.
[2022-07-05 06:02] VITALS: BP 118/62; PULSE 72; RESP 16
[2022-07-05] MEDS ORDERED: LIDOCAINE 5% PATCH TOPICAL SCH (09:00)
== END 2022-07-05 06:02 | disposition home or self-care (01) ==
LOC: EC 02:28
DX: S39.012A Strain of muscle, fascia and tendon of lower back, initial encounter (principal); F32.A Depression, unspecified; Z88.2 Allergy status to sulfonamides; Z88.8 Allergy status to other drugs, medicaments and biological substances; Z79.899 Other long term (current) drug therapy; X58.XXXA Exposure to other specified factors, initial encounter
CPT/HCPCS: 36415; 80053; 85025; 81001; 74176; 99284; 96374; 96375 ×2; J2360; J2405; J1885

== ENCOUNTER → 2024-04-22 | Outpatient (CLI) | payer OTHER ==
--- NOTE | 2024-04-22 14:46 | MM ---
Reason for Exam: Screening (asymptomatic). Last mammogram was performed 2 year(s) and 9 month(s) ago. Patient History: Menarche at age 13. First Full-Term at age 26. Hysterectomy at age 36. Hormonal Contraceptives for 8 years until age 24. 01/27/2021, Benign Core Biopsy on the right side. Risk Values: Lorrie 5 year model risk: 1.4%. NCI Lifetime model risk: 11.2%. Prior Study Comparison: 07/28/2020 Right Diagnostic Mammogram, [facility]. 01/27/2021 Right Diagnostic Mammogram, [facility]. 08/01/2021 Bilateral MG diagnostic mammo w CAD [facility], [facility]. Tissue Density: There are scattered areas of fibroglandular density. Findings: Analyzed By CAD. Microclip right breast from prior biopsy. There is no suspicious group of microcalcifications or new suspicious mass in either breast. Overall Assessment: Negative, BI-RAD 1 Management: Screening Mammogram of both breasts in 1 year. Patient should continue monthly self-breast exams. A clinical breast exam by your physician is recommended on an annual basis. This exam should not preclude additional follow-up of suspicious palpable abnormalities. Note on Lorrie scores and lifetime risk: 1. A Lorrie score greater than 3% is considered moderate risk. If this is the case, consider specialist referral to assess eligibility for a risk reducing agent. 2. If overall lifetime risk for the development of breast cancer is 20% or higher, the patient may qualify for future screening with alternating mammogram and breast MRI. [facility], , 04/22/2024 2:43 PM. Electronically signed and approved by: Hawa Mcmahon M.D. Radiologist
== END | disposition home or self-care (01) ==
LOC: RADMAMWWP 07:53
PROVIDERS: ATTEND Family Medicine
DX: Z12.31 Encounter for screening mammogram for malignant neoplasm of breast (principal); R92.323 Mammographic fibroglandular density, bilateral breasts
CPT/HCPCS: 77063; 77067